=== PATIENT | male | born 1945 | race Caucasian/White ===

== ENCOUNTER 2019-11-08 05:59 | Day surgery (SDC) | payer BC ==
[2019-11-05 11:30] VITALS: BMI 27.9
[2019-11-08 06:37] LABS: #Eosinphils 0.2 thou/uL (0.0-0.7); #Monocytes 0.6 thou/uL (0.11-0.59); #Neutrophils 2.4 thou/uL (1.40-6.50); %Basophils 0.9 % (0.0-1.0); %Eosinophils 4.3 % (0.0-10.0); %Monocytes 10.8 % (0.0-10.0); Hemoglobin 13.6 g/dL (14.0-18.0); Mean Corpuscular Hemoglobin 33.5 pg (27.0-31.0); Mean Corpuscular Volume 95.7 fL (78.0-98.0); Mean Platelet Volume 8.3 fL (7.4-10.4); Platelet Count 187 thou/uL (130-400); RBC Distribution Width 12.2 % (11.5-14.5); Red Blood Cell (RBC) Count 4.05 mill/uL (4.70-6.10); White Blood Cell (WBC) Count 5.2 thou/uL (4.8-10.8)
[2019-11-08 06:43] LABS: PTT 29.2 SEC (22.9-36.1); Prothrombin Time 13.3 SEC (12.0-14.7)
[2019-11-08 06:56] LABS: Anion Gap 13 mmol/L (10-20); BUN (Urea Nitrogen) 12 mg/dL (8.4-25.7); Calc. Creatinine Clearance 118 mL/min (70-130); Calcium 9.1 mg/dL (7.8-10.44); Carbon Dioxide 24 mmol/L (23-31); Chloride 107 mmol/L (98-107); Estimated GFR-MDRD Greater than 90; Glucose 115 mg/dL (83-110); Potassium 3.7 mmol/L (3.5-5.1); Sodium 140 mmol/L (136-145)
[2019-11-08] MEDS ORDERED: Iothalamate Meglumine 60% 50 ML VIAL FS ONE (07:08)
[2019-11-08] MEDS ORDERED: Fentanyl 100 MCG/2 ML VIAL ONE ×2 (07:13)
[2019-11-08] MEDS ORDERED: Famotidine/PF 20 mg/2ml Vial ONE (07:24)
[2019-11-08] MEDS ORDERED: mitoMYcin 40 MG in Sodium Chloride 0.9% 40 ML IV SCH (07:30)
[2019-11-08] MEDS ORDERED: B & O ONE (08:39)
--- NOTE | 2019-11-08 09:10 | OP ---
DATE OF PROCEDURE: 11/08/2019 PREOPERATIVE DIAGNOSIS: Bladder tumor. POSTOPERATIVE DIAGNOSIS: Bladder tumor. PROCEDURE PERFORMED: Cysto transurethral resection of bladder tumor. ANESTHETIC: General. ESTIMATED BLOOD LOSS: Minimal. FINDINGS: On the anterior wall just to the right of the midline just distal to the air bubble was about a 1 cm area of red, raised, inflamed mucosa. This was resected and some deeper bites were taken underneath it. On CT scan, he had a mass underneath this in the bladder wall. Did not at all try to fully resect this as I could not really see any demarcation between it and normal bladder. We will see what this pathology shows. DRAINS PLACED: 18-Mohawk Barragan catheter. He also had 40 mg of mitomycin-C in 40 mL placed into the bladder at the end of the case. I did an exam under anesthesia before we prepped him out, could not feel any three-dimensional mass in the bladder, although the CT scan did show one. DESCRIPTION OF PROCEDURE: Obtained written and verbal consent from the patient. After receiving IV antibiotics, he was taken to the operating suite. He was placed in a supine position on the treatment table. PlexiPulses were placed on his lower extremities and turned on. He was given a general anesthetic oral intubation, placed in the dorsal lithotomy position and sterilely prepped and draped. Cystoscopy was performed with a 22-Mohawk sheath. This was well lubricated and passed under direct vision through the male urethra into the urinary bladder with aid of a 30-degree lens, video camera, and monitor. The bladder was examined by both 30 and 70-degree lens filling and emptying it a number of times. We then brought in an Lora resectoscope 24-Mohawk. It was well lubricated, passed under direct vision through the male urethra into the bladder with the visual obturator. Generator gyrus bladder tumor loop 30 degree lens video camera and monitor and an Lora resectoscope were used. We resected initially just this mucosal lesion and some of the tissue below and then deeper section of the same area. We then sent these pieces off separately. We cauterized. There was good hemostasis. The bladder was drained and then the instruments were removed. Barragan catheter was placed. It was hand irrigated, it was clear. We placed mitomycin-C in it. As mentioned, the catheter was plugged. He was then taken by stretcher to recovery room. Job ID: [id number]
[2019-11-08] MEDS ORDERED: Morphine 2 MG/ML SYRINGE ONE (09:27)
[2019-11-08] MEDS ORDERED: HYDROcodone/Acetaminophen 5/325 mg Tablet ONE ×2 (09:52→10:58)
[2019-11-08] MEDS ORDERED: Ondansetron ODT 4 MG TAB ONE (11:16)
[2019-11-08] MEDS ORDERED: Glycopyrrolate 0.2 MG/ML 5 ML SYRINGE ONE (15:08)
[2019-11-08] MEDS ORDERED: PHENYLEPHRINE-NS 100 MCG/ML 10 ML SYRINGE ONE (15:08)
[2019-11-08] MEDS ORDERED: Rocuronium Bromide 10 MG/ML (10ML VIAL) ONE (15:08)
[2019-11-08] MEDS ORDERED: PROPOFOL 200 MG/20 ML VIAL ONE (15:08)
[2019-11-08] MEDS ORDERED: EPHEDRINE 25 MG/5 ML SYRINGE ONE (15:08)
[2019-11-08] MEDS ORDERED: Lidocaine 1% PF 5 ML VIAL ONE (15:08)
== END 2019-11-08 11:30 | disposition home or self-care (01) ==
LOC: SDC 05:59
PROVIDERS: ATTEND Urology
PROC: 0T5B8ZZ Destruction of Bladder, Via Natural or Artificial Opening Endoscopic (ICD-10-PCS; principal; 2019-11-08)
DX: D49.4 Neoplasm of unspecified behavior of bladder (principal); D64.9 Anemia, unspecified; Z88.5 Allergy status to narcotic agent
CPT/HCPCS: 36415; 80048; 85025; 85610; 85730; 88307; 88342; 93005; 93010; J0690; J2001; J2270; J2704; J3010; J9280; Q0162; S0028

== ENCOUNTER 2019-12-28 06:54 | Day surgery (SDC) | payer BC ==
[2019-12-27 09:09] VITALS: BMI 27.8
[2019-12-28] MEDS ORDERED: Famotidine/PF 20 mg/2ml Vial ONE (09:08)
[2019-12-28] MEDS ORDERED: SUGAMMADEX SODIUM 200 MG/2 ML VIAL ONE (09:08)
[2019-12-28] MEDS ORDERED: Fentanyl 100 MCG/2 ML VIAL ONE (09:08)
[2019-12-28 09:21] LABS: Hemoglobin 13.7 g/dL (14.0-18.0); Mean Corpuscular HGB CONC 33.4 g/dL (32.0-36.0); Mean Corpuscular Hemoglobin 32.8 pg (27.0-31.0); Mean Corpuscular Volume 98.3 fL (78.0-98.0); Mean Platelet Volume 8.2 fL (7.4-10.4); Platelet Count 226 thou/uL (130-400); RBC Distribution Width 13.1 % (11.5-14.5); Red Blood Cell (RBC) Count 4.17 mill/uL (4.70-6.10)
[2019-12-28 09:32] LABS: Prothrombin Time 12.8 SEC (12.0-14.7)
[2019-12-28 09:43] LABS: Anion Gap 16 mmol/L (10-20); BUN (Urea Nitrogen) 11 mg/dL (8.4-25.7); Calc. Creatinine Clearance 111 mL/min (70-130); Calcium 9.5 mg/dL (7.8-10.44); Carbon Dioxide 26 mmol/L (23-31); Chloride 102 mmol/L (98-107); Estimated GFR-MDRD Greater than 90; Glucose 111 mg/dL (83-110); Potassium 3.8 mmol/L (3.5-5.1); Sodium 140 mmol/L (136-145)
[2019-12-28] MEDS ORDERED: PHENYLEPHRINE-NS 100 MCG/ML 10 ML SYRINGE ONE (10:16)
[2019-12-28] MEDS ORDERED: EPHEDRINE 25 MG/5 ML SYRINGE ONE (10:16)
[2019-12-28] MEDS ORDERED: Lidocaine 1% PF 5 ML VIAL ONE (10:16)
[2019-12-28] MEDS ORDERED: Metoclopramide HCl 10 MG/2 ML VIAL ONE (10:16)
[2019-12-28] MEDS ORDERED: Rocuronium Bromide 10 MG/ML (10ML VIAL) ONE (10:16)
[2019-12-28] MEDS ORDERED: Dexamethasone 20 MG/5 ML VIAL ONE (10:16)
[2019-12-28] MEDS ORDERED: Ketorolac Tromethamine 30 MG/ML VIAL ONE (10:16)
[2019-12-28] MEDS ORDERED: Ondansetron PF 4 MG/2 ML Vial ONE (10:16)
[2019-12-28] MEDS ORDERED: PROPOFOL 200 MG/20 ML VIAL ONE (10:16)
--- NOTE | 2019-12-28 11:52 | OP ---
DATE OF PROCEDURE: 12/28/2019 PREOPERATIVE DIAGNOSIS: Bladder lesion. POSTOPERATIVE DIAGNOSIS: Bladder lesion. PROCEDURES PERFORMED: Cystoscopy and transurethral resection of the bladder tumor. ANESTHESIA: General. ESTIMATED BLOOD LOSS: Less than 50. DRAINS: An 18-Danish Barragan catheter. PATHOLOGY: Frozen section showed inflammatory tissue, but not cancer. will be sent. We did send tissue off for acid-fast stain, fungal culture and routine culture. We did take some deeper pieces for final pathology. OPERATIVE INDICATIONS: This is a 74-year-old male who had a lot of lower urinary tract symptoms over the past few months office cysto and a CT in September. The CT showed a very small lesion in the bladder of anterior wall just to the right of midline and there was an area of bladder wall thickening in this same region and we resected this. Pathology came back as benign, but inflammatory with granulation tissue. His lower urinary tract symptoms markedly improved and for this reason, we watched him and repeated the CT scan a few days ago that showed marked worsening of this lesion. It was kind of involving the fundus of the bladder much thicker and concerning on the CAT scan. For that reason, we will bring him back in to re-resect some of this area. It did not appear to be something that started mucosally during his last visit here. DESCRIPTION OF PROCEDURE: After obtaining written and verbal consent from the patient after receiving IV antibiotics, he was taken to the operating suite. He was placed in a supine position on the treatment table. PlexiPulses were placed on his lower extremities and turned on. He was given a general anesthetic and oral intubation, placed in the dorsal lithotomy position and sterilely prepped and draped. Cystoscopy was performed with a 22-Danish sheath. This was well lubricated and passed under direct vision through the male urethra and into the urinary bladder with aid of a 30-degree lens and video camera and monitor. The bladder was examined with both the 30 and 70 lens. Photographs were taken. It changed remarkably from just a few weeks ago. There was almost necrotic appearing tissue hanging around from the anterior wall and starting up taking a semi-mescalero apache from about 11 o'clock to probably about 3. There was almost a circling of the bladder wall at the area of the fundus and this followed that lesion. This was the area that we resected. The prior biopsy site from a few weeks ago had not healed. It also had some necrotic tissue on that. We scraped out the necrotic tissue and then got to some more solid-appearing tissue that we resected out. We sent this up for frozen section, which I reviewed with the couple of the pathologists. There was nothing that looked like cancer. This does not look like lymphoma, does not look like small cell, does not look like sarcoma and does not look like any type of the mucosal cancer and does not look like cancer or looks inflammatory. We decided to take a few deeper pieces and also took some more pieces and sent for acid-fast stain, fungal culture and normal culture and sensitivity. Once this was done, we cauterized all this area, placed a Barragan catheter and it was draining well. Urine was clear. It was hooked up to a drainage bag. He was taken out of the dorsal lithotomy position. He was awakened, extubated, and taken by stretcher to recovery room. Job ID: [id number]
== END 2019-12-28 12:28 | disposition home or self-care (01) ==
LOC: SDC 06:54
PROVIDERS: ATTEND Urology
PROC: 0T5B8ZZ Destruction of Bladder, Via Natural or Artificial Opening Endoscopic (ICD-10-PCS; principal; 2019-12-28)
DX: D49.4 Neoplasm of unspecified behavior of bladder (principal); Z79.899 Other long term (current) drug therapy; Z88.5 Allergy status to narcotic agent
CPT/HCPCS: 80048; 85027; 85610; 85730; 87070; 87102; 87116; 87205; 87206; 88305; 88307; 88331; J0690; J1100; J1885; J2001; J2405; J2704; J2765; J3010; S0028